=== PATIENT | male | born 1995 | race African-American/Black ===

== ENCOUNTER 2023-07-26 14:34 | Emergency (ER) | payer MEDICAID ==
[2023-07-26] MEDS ORDERED: Boostrix 0.5 ML (Tdap) VIAL (>/=7 yrs of age) ONE (16:28)
[2023-07-26] MEDS ORDERED: Lidocaine 1% (PF) 30 ML VIAL ONE (16:28)
== END 2023-07-26 17:43 | disposition home or self-care (01) ==
LOC: CSHERS 14:34
DX: S61.412A Laceration without foreign body of left hand, initial encounter (principal); F17.290 Nicotine dependence, other tobacco product, uncomplicated; Z23 Encounter for immunization; W23.0XXA Caught, crushed, jammed, or pinched between moving objects, initial encounter
CPT/HCPCS: 12002; 90471; 90715; J2001